=== PATIENT | male | born 1945 | race Caucasian/White ===

== ENCOUNTER → 2018-11-11 15:20 | Outpatient (CLI) | payer MEDICARE, SELFPAY ==
--- NOTE | 2018-11-11 15:30 | ASPSI_PTH ---
PATIENT: SARAH FRASER LOC: [facility] U#:[id number] AGE/SX: 79/M ROOM: RE11/11/[address]: Dr. Vinh Trevizo MD : 1945 BED: DIS: SPEC #: [id number] RECD: 11/11/18 17:33 STATUS: CHERELLE ROXIE #: [id number] JACQUELINE: 11/11/18 15:[address]: Vinh Trevizo DEPT: CYTOLOGY RECD BY: Laurent Davis Tissues: Cheek, NOS Procedures: Surgery Specimen Level IV Cytospin Fluid Cytology Other HEADER OPERATION: FNA PRE-OP DIAGNOSIS: History of skin cancer near site TISSUE SUBMITTED: Right upper cheek area DIAGNOSIS CYTOLOGY Right upper cheek area, biopsy: A few atypical cells noted. See comment. NIYA:lauren 11/14/18 COMMENT The cell block is paucicellular and consists of minute fragments of benign fibrous tissue. Cytospin slides are paucicellular and shows a few atypical cells of undetermined significance. Correlation with clinical findings and appropriate follow up are necessary. Rebiopsy/excision of the lesion is suggested if clinically indicated. Case has been reviewed in consultation with Dr. Valdez who concurs with the above diagnosis. IDC:AM CYTOLOGY STUDY Slides are reviewed. CYTOLOGY GROSS Received is 35 ml of clear fluid labeled with the patient's name and and designated per the requisition as right upper check area. Submitted for cytology preparation including cell block. / lauren 11/12/18 TC:5 CPT: 95741, 17128
== END ==
PROVIDERS: Referring Provider Otolaryngology; Visit Provider Otolaryngology
DX: Z85.828 Personal history of other malignant neoplasm of skin (principal)
CPT/HCPCS: 88108; 88161; 88305

== ENCOUNTER 2018-11-29 16:49 | Observation (INO) | payer MEDICARE, SELFPAY ==
[2018-11-29] VITALS (10 sets, daily range): BP systolic 119–165; BP diastolic 78–97; PULSE 73–93; RESP 16–94; TEMP -13.2–37.4; O2SAT 18–99; BMI 32.8
--- NOTE | 2018-11-29 | IMM_PTH ---
PATIENT: SARAH FRASER LOC: [facility] U#:[id number] AGE/SX: 72/M ROOM: MS312 RE11/29/[address]: Dr. Vinh Trevizo MD : 1945 BED: 1 DIS: 11/30/2018 SPEC #: [id number] RECD: 12/03/18 12:26 STATUS: SOUYamil REQ #: [id number] JACQUELINE: 11/29/18 00:[address]: Vinh Trevizo DEPT: IMMUNOHISTOCHEMISTRY RECD BY: Talia Luque ENTERED: 12/03/18 12:28 SP TYPE: IMMUNO OTHR DR: Dr. Khadar Jimenez MD Tissues: A - Parotid gland, NOS Procedures: SMA (add) CK5-6 (add) DESMIN (add) P16 (add) Vimentin (add) P40 (add) Vimentin (initial) PHYSICIAN & INSTITUTION [place] [id number] SPECIMEN INFORMATION: Tissue Source: A - Lateral and right parotid gland, portion of sock ironer muscle and facial skin overlying the mass Clinical Info: Parotid gland mass, facial paresis Specimen Number: [id number] A3, A6, A8 CPT code: 99203, 97318 x15 METHODOLOGY: Deparaffinized sections of prefer/formalin-fixed tissue or PAP/DQ stained slides are incubated with monoclonal/polyclonal antibodies/oligonucleotide probes. Localization is made via biotin free immunoperoxidase method. Appropriate controls are performed and reacted as expected. Results on target cell population are indicated in the following table: RESULTS: ANTIBODY / CLONE RESULT Block A3 Vimentin (V9) negative Actin (1A4) negative Desmin (CE-R-11) negative CK5-6 (D5 & 1684) positive P40 (BC28) positive P16 (E6H4) negative Block A6 Vimentin (V9) negative Actin (1A4) negative Desmin (CE-R-11) negative CK5-6 (D5 & 1684) positive P40 (BC28) positive Block A8 Vimentin (V9) negative Actin (1A4) negative Desmin (CE-R-11) negative CK5-6 (D5 & 1684) positive P40 (BC28) positive These tests were developed and their performance characteristics determined by [facility]. They may not have been cleared or approved by the [place]. Food and Drug Administration. The FDA has determined that such clearance or approval is not necessary. The above immunohistochemical/dualISH markers are ordered and reviewed by the pathologist. INTERPRETATION: A. Lateral and right parotid gland, portion of sock ironer muscle and facial skin overlying the mass: Poorly differentiated invasive squamous cell carcinoma. Extensive fibrosis (desmoplastic reaction) surrounding the tumor is noted. SJ:lauren 12/04/18 Case has been reviewed in consultation with Dr. Valdez who concurs with the above diagnosis. IDC:JOSE
--- NOTE | 2018-11-29 | PAR_PTH ---
PATIENT: SARAH FRASER LOC: MS3 U#:[id number] AGE/SX: 72/M ROOM: MS312 RE11/29/[address]: Dr. Vinh Trevizo MD : 1945 BED: 1 DIS: 11/30/2018 SPEC #: [id number] RECD: 11/29/18 15:20 STATUS: CHERELLE RENeli #: [id number] JACQUELINE: 11/29/18 00:[address]: Vinh Trevizo DEPT: SURGICAL PATHOLOGY RECD BY: Talia Luque ENTERED: 12/02/18 07:44 SP TYPE: PAROTID OTHR DR: Dr. Khadar Jimenez MD Tissues: A - Parotid gland, NOS B - Parotid duct C - Parotid gland, NOS Procedures: Frozen Section (charge) Frozen Section Add'l (chan[facility] home) Surgery Specimen Level IV Surgery Specimen Level V HEADER OPERATION: Right parotidectomy excision tumor, frozen sections PRE-OP DIAGNOSIS: Mass of parotid gland, facial paresis TISSUE SUBMITTED: A - Lateral and right parotid gland, portions of applied biology professor muscle and facial skin overlying the mass, sent for FS at 1514, double suture - medial, single suture - superior, B - Dillon's duct, sent for FS at 1514, C - Additional parotid tissue sent for FS at 1557, stitch - superior, stained - previous cut, unstained - new cut FROZEN SECTION DIAGNOSIS A. Right parotid gland: Fibrosis and scattered atypical cells consistent with carcinoma close to medial margin. Deep margin negative for carcinoma. B. Dillon's duct: Negative for carcinoma. C. Additional parotid tissue: Negative for carcinoma. NIYA:lauren 11/29/18 Case has been reviewed in consultation with Dr. Valdez who concurs with the above diagnosis. IDC:AM MICROSCOPIC DIAGNOSIS A. Lateral and right parotid gland, portion of applied biology professor muscle and facial skin overlying the mass: Poorly differentiated invasive squamous cell carcinoma. Focal squamous cell carcinoma in situ. One lymph node, negative for metastatic carcinoma. Actinic keratosis with moderate to severe atypia. Solar elastosis. Major salivary gland tissue (parotid gland), no pathologic diagnosis. See comment. B. Dillon's duct: Negative for carcinoma. C. Additional parotid tissue: Skin with underlying tissue, negative for carcinoma. SJ:lauren 12/03/18 COMMENT A. The tumor is entirely present in the subcutaneous adipose tissue underlying the skin piece and focally also invades into the underlying skeletal muscle tissue. Extensive fibrosis (desmoplastic reaction) is noted surrounding the tumor. Underlying muscle shows marked reactive changes. A focal area of squamous cell carcinoma in situ is also noted separate from the underlying invasive squamous cell carcinoma. The resection margins are free of tumor (both invasive carcinoma and carcinoma in situ). The invasive squamous cell carcinoma is present close to the medial margin of the specimen. Immunohistochemistry ([id number]) supports the above diagnosis. The tumor does not involve the adjacent parotid gland tissue. One lymph node is noted between the tumor and parotid gland tissue and negative for metastatic carcinoma. Please make reference to previous specimen ([id number]) right upper check area, biopsy with diagnosis of a few atypical cells noted. Case has been reviewed in consultation with Dr. Valdez who concurs with the above diagnosis. IDC:AM MICROSCOPIC DESCRIPTION Slides are reviewed. GROSS DESCRIPTION A - Received fresh for frozen section diagnosis labeled with the patient's name is a specimen designated mass of right parotid gland. The specimen consists of a skin and underlying soft tissue and adjacent glandular tissue consistent with parotid gland. The entire specimen measures 12 x 7 x 2 cm. Skin is present at the superior end and measures 4 x 3.5 cm. The specimen is oriented as follows: double - medial, single - superior. The specimen is inked as follows: anterior - red, posterior - orange, superior - yellow, inferior - green, medial - black and lateral - blue. Serial sections reveal an indurated area in the soft tissue underlying the skin measuring 1.5 x 1.5 cm. This area is close to the deep and medial margins of the specimen. Three frozen sections are done including closest margins. The parotid gland tissue measures 7 x 6 x 3 cm. Sections of the parotid gland do not reveal any mass lesion and reveal mostly adipose cut surface. Can Solderer sections are submitted in 15 cassettes as follows: 13 - frozen section, indurated area with closest margins, 4 - superior margin, 5-11 - rest of the skin piece and underlying tissue, 12-15 - parotid gland tissue. / SJ: 12/02/18 B - Received fresh for frozen section diagnosis labeled with the patient's name is a specimen designated Dillon's duct. The specimen consists of a tubular piece of chavez soft tissue measuring 1.5 cm in length and 0.7 cm in diameter. The specimen is bisected and submitted for frozen section diagnosis in one cassette. / AM: 12/02/18 C - Received fresh for frozen section diagnosis labeled with the patient's name is a specimen designated additional parotid tissue. The specimen consists of a piece of skin measuring 6.5 x 1 x 0.2 cm. The specimen is oriented as follows: stained - previous cut, unstained - new cut, stitch - superior. The specimen is inked as follows: superior margin - red and inferior margin - yellow. The entire specimen is submitted for frozen section diagnosis in one cassette. / AM: 12/02/18 TC:0 CPT: 55567, 18431 x2, 90697 x3, 75433 x2
[2018-11-29 10:39] LABS: Hematocrit 47.3 % (40-54); Mean Corp Hgb Conc 33.8 g/dL (32-36); Mean Corpuscular Hgb 31.8 pg (27.0-32.0); Mean Platelet Vol. 8.3 fl (6.2-12.0); Platelet Count 165 K/mm3 (150-450); RBC Distribution Width CV 13.2 % (11.6-14.6); RBC Distribution Width SD 45.6 fl (35.1-43.9); Red Blood Count 5.03 M/mm3 (4.6-6.2); White Blood Count 4.7 K/mm3 (4.4-11.0)
[2018-11-29] MEDS: Lactated Ringers 1,000 ML 100 ML IV ×2 (10:40→19:04)
[2018-11-29 10:52] LABS: Anion Gap 6 (5-15); BUN 10 mg/dL (7-18); BUN/Creat Ratio 13.3 RATIO (10-20); Calcium,Total 9.2 mg/dL (8.5-10.1); Chloride 104 mmol/L (98-107); Creatinine, Serum 0.75 mg/dL (0.70-1.30); EST Glomerular Filtration Rate 109 mL/min (>60); Est Glom Filt Rate - Afr Amer 132 mL/min (>60); Estimated Creatinine Clearance 72.16 ml/min; Glucose 108 mg/dL (74-106); Sodium Level 138 mmol/L (136-145)
[2018-11-29] MEDS: Bacitracin 500 UNITS/GM PACKET (15:23)
--- NOTE | 2018-11-29 16:36 | PCM.OPRPT ---
Problem List (1) Secondary malignant neoplasm of parotid gland Status: Acute Report of Operation Date of Procedure: 11/29/18 Pre-Operative Diagnosis: Malignant lesion of right parotid with history of squamous cell carcioma of right face Post-Operative Diagnosis: Same Surgery/Procedure Performed:: Right parotidectomy with preservation of the facial nerve, advancement transposition flap reconstruction Description of Surgical Findings:: Ranjit is a 72-year-old male who presents with a slowly enlarging mass of the right cheek underlying a scar from a previous excision of a squamous cell carcinoma. CT scan showed a mass within the scar abutting the pressure dispatcher muscle and given this history and a fine-needle aspiration biopsy showing atypical cells the above procedures offered for definitive treatment with a high suspicion of malignancy. The risks of facial weakness, facial numbness, pain with mastication, and need for additional treatment with radiation or other surgical therapy for correction of impaired eye closure or other deficit resulting from the resection of his malignancy were discussed. The risks, alternatives, potential complications, and benefits were discussed at length and any questions answered to the patient and/or caregiver's satisfaction. Witnessed informed consent was obtained in the office, and the patient and/or caregiver was agreeable to proceed. Procedure went as follows: The patient was identified in the preoperative holding and the right parotid lesion site marked in accordance with the patient's physical skin exam, office notes, and consent. The patient was then brought to the operating room, placed under general anesthesia and intubated. When appropriate anesthesia was obtained, the facial nerve monitoring electrodes were then placed in accordance with the manufacture's directions over the right side of the face and confirmed to be operational. The planned incision was then marked with a marking pen and injected with 1% lidocaine with 100,000 epinephrine for a total of 11 mL. After allowing for vasoconstriction, a standard parotidectomy incision was then made using a 15 blade scalpel through the skin and subcutaneous tissues. The subcutaneous tissue was then dissected and the greater auricular nerve identified with the branches along the posterior aspect of the incisional flap preserved. Dissection was then carried down along the sternocleidomastoid freeing the parotid attachments to this muscle. Dissection was then carried out along the tragal cartilage and the main trunk of the facial nerve identified. The gland was then resected following out along the facial nerve branches working inferiorly to superiorly. Within the midportion of the gland in the periphery extending over the zygoma and pressure dispatcher muscle was a firm mass encased within the scar from his previous resection. The portion of the facial nerve entering this mass was sacrificed with preservation of the branch extending to the very orbital musculature. Nerve stimulation confirmed preservation of the oral and ocular nerve branches. An ellipse of skin overlying the mass and encompassing the previous excision scar was then planned and resected in continuity with the deeper tissues and parotid glands deep to the zygoma and removing portions of the pressure dispatcher mussel where the tumor was adherent. This was then sent for frozen section evaluation revealed malignancy within the scar tissue from his previous resection. This encroached upon the medial margin of the resection margin additional 3 mm skin margin along this length was sent for pathologic evaluation which is found then to be free of tumor. Resection of the tumor and previous scar revealed a skin defect 4 x 7 cm in size. An advancement transposition flap was then designed to allow for reduced tension wound closure. The wound bed was then copiously irrigated with saline solution and a #7 flat BRIANNA drain placed and brought out through separate stab incision in the skin. The soft tissues were then reapproximated with interrupted 3-0 Vicryl sutures followed by 4-0 Prolene sutures to the skin over the face. A running baseball stitch of 5-0 Monocryl was then used to close the neck and preauricular incisions. The patient was then returned to anesthesia, was revived, and extubated without complication having tolerated the procedure well. Type of Anesthesia:: General Anesthesiologist: Rajan Daly Special Medications: none Specimen's removed: right parotid mass Drains: #7 flat BRIANNA Estimated Blood Loss (mL): 100 mL Fluids Replaced: 1800 mL Grafts/Implants Used: none - Complications none - Admit VTE Documentation VTE Present on Admission: No VTE Mechan Device Prophylaxis: SCD's VTE Pharm Prophylaxis ordered?: No
--- NOTE | 2018-11-29 16:48 | DCINST_ITS ---
- Discharge Diagnoses Current Active Problems: Current Active and Chronic Problems Secondary malignant neoplasm of parotid gland (Acute) You will use the following diet at home:: No restrictions Discharge Activity: Return to Normal Activity, May not drive while taking narcotic pain medications. Call your doctor if your incision/area has: Increased Pain/ Swelling, Increased Redness, Foul Smelling Discharge, Swelling at the incision site Call your doctor if you observe: Fever of 101 or Higher, Inability to urinate, Uncontrolled pain Cleanse incision/area with: Do not get Incision Wet - for 48 hours Allergies/Adverse Reactions: Allergies NSAIDS (Non-Steroidal Anti-Inflamma Allergy (Verified 11/29/18 10:20) Unknown Medications to take at Discharge Acetaminophen [Tylenol Extra Strength] 500 - 1,000 mg PO Q6H PRN PRN 11/27/18 Acetaminophen/Diphenhydramine [Tylenol Pm Ex-Strength Caplet] 1 ea PO QHS PRN 11/27/18 Aspirin [Aspir 81] 81 mg PO DAILY 11/27/18 Cholecalciferol (Vitamin D3) [Vitamin D3] 2,000 unit PO DAILY 11/27/18 Lisinopril [Zestril] 20 mg PO DAILY 11/27/18 Multivitamin with Minerals [Multiple Vitamin] 1 ea PO DAILY 11/27/18 Pantoprazole Sodium [Protonix] 40 mg PO DAILY 11/27/18 Simvastatin [Zocor] 20 mg PO QHS 11/27/18 Vitamin B Complex/Minerals [Sm Stress Formula+Zinc Tablet] 1 ea PO QHS 11/27/18 Primary Care Physician: Khadar Jimenez MD [Primary Care Provider] - Test Results: Test results from this visit will be discussed in further detail at your follow- up appointment, if applicable. Please Follow Up With: Vinh Trevizo MD When: 10 days
--- NOTE | 2018-11-29 19:06 | NURSING ---
1899 Dr. Trevizo paged by Gabbi and she reported he had right neck swelling, and it appeared like it wasn't draining and we were stripping it. Dr Trevizo said he would be right over.
--- NOTE | 2018-11-29 19:22 | NURSING ---
1920 Dr Trevizo in room and stripping the tubing. He also applied a pressure drsg. Pt is scotty. the stripping well. Tongue is midline.
--- NOTE | 2018-11-29 19:51 | PCM.PN.SRG ---
Patient Problems: Active and Suspected Problems Secondary malignant neoplasm of parotid gland (Acute) Subjective: Nursing called reporting that the wound site suddenly kevin swollen, but they were unable to express any blood into the drain. Objective: Patient is noted to be alert at the bedside without wheezing or stridor. Is noted to be some soft tissue fullness suggesting hematoma formation of the inferior aspect of the right neck flap. A pressure dressing was applied and bimanually stripping the drain 160 cc of bloody material was drained resulting in significant reduction of the area of swelling. Observation over 15 minutes failed to show any reaccumulation of material and is felt that this likely represented a small skin edge bleeding that had accumulated to the flap and was controlled with a pressure dressing. - Physical Exam General: Alert, Oriented x3 HEENT: - - Right facial wound is intact, there is noted to be retention of right eye closure and oral movements after resection of parotid mass and mid branches of the facial nerve. Oral: Moist Mucosa Vital Signs Temp Pulse Resp BP Pulse Ox 8.3 F L 79 20 H 160/89 H 94 11/29/18 19:12 11/29/18 19:12 11/29/18 19:12 11/29/18 19:12 11/29/18 19:12 Oxygen Delivery Method Room Air Weight: 108.4 kg Body Mass Index (BMI) 32.8 Intake and Output for Last 24 Hours 11/27/18 11/28/18 11/29/18 23:59 23:59 23:59 Intake Total 840 / 840 Output Total 1150 / 1150 Balance -310 / -310 Laboratory Tests Past 24 Hrs 11/29/18 11/29/18 10:19 10:19 WBC 4.7 RBC 5.03 Hgb 16.0 Hct 47.3 MCV 94.0 MCH 31.8 MCHC 33.8 RDW Std Deviation 45.6 H RDW Coeff of Curt 13.2 Plt Count 165 MPV 8.3 Sodium 138 Potassium 4.0 Chloride 104 Carbon Dioxide 28.0 Anion Gap 6 BUN 10 Creatinine 0.75 Estim Creat Clear Calc 72.16 Est GFR (MDRD) Af Amer 132 Est GFR (MDRD) Non-Af 109 BUN/Creatinine Ratio 13.3 Glucose 108 H Calcium 9.2 Medical Necessity - Tobacco Use Smoking Status: Never smoker Tobacco Use: Non-smoker Assessment/Plan All Active Problems Secondary malignant neoplasm of parotid gland (Acute) The patient is seen at the bedside with a small acute hematoma formation under the skin flap. This can controlled with placement of a pressure dressing and milking of the drain which produced 160 cc of sanguinous material. A short period of observation if it failed to show any significant reaccumulation of bleeding and ongoing observation is advised at this time.
[2018-11-30 04:29] VITALS: BP 128/62; PULSE 62; RESP 16; TEMP 36.5; O2SAT 99
[2018-11-30 08:32] VITALS: BP 145/81; PULSE 66; RESP 18; TEMP 36.4; O2SAT 100
[2018-11-30] MEDS: Lisinopril 20 MG Tablet PO (08:36)
[2018-11-30] MEDS: Pantoprazole Sodium 40 MG Tablet PO (08:36)
--- NOTE | 2018-11-30 10:35 | PCM.PN.SRG ---
Patient Problems: Active and Suspected Problems Secondary malignant neoplasm of parotid gland (Acute) Subjective: Patient is sitting up in bed with pressure dressing in place. He reports that he has had no significant pain overnight and reports that the pressure in the neck is feeling reduced. Objective: There is moderate perioral and periorbital edema which is soft. After removal of the pressure dressing there is noted to be significant reduction of the area of swelling over the right neck without significant fluid collection. Drain output has been less than 10 cc over the last shift. There is minimal ecchymosis consistent with overnight bleeding underneath the flap that has now resolved. - Physical Exam General: Alert, Oriented x3, Cooperative, No apparent distress HEENT: - - Surgical incision sites are clean dry and intact. There is minimal ecchymosis and mild edema consistent with a pressure dressing but no firm mass suggestive of hematoma. Oral: Moist Mucosa, No Gingival or Mucosal Lesions/ Ulcerations Neck: Supple, Trachea Midline Lungs: Normal air movement, No rhonchi, No wheeze Cardiovascular: Regular rate, Regular Rhythm Extremities: No clubbing, No cyanosis, No edema Skin: No rashes Psych/Mental Status: Normal Affect, Alert and oriented to time, place, person, mood and affect Vital Signs Temp Pulse Resp BP Pulse Ox 97.5 F L 66 18 145/81 H 100 11/30/18 08:32 11/30/18 08:32 11/30/18 08:32 11/30/18 08:32 11/30/18 08:32 Oxygen Flow Rate (L/min) 1 Oxygen Delivery Method Room Air Weight: 108.4 kg Body Mass Index (BMI) 32.8 Intake and Output for Last 24 Hours 11/28/18 11/29/18 11/30/18 23:59 23:59 23:59 Intake Total 840 / 840 1000 / 1000 Output Total 1390 / 1390 80 / 80 Balance -550 / -550 920 / 920 Laboratory Tests Past 24 Hrs 11/29/18 11/29/18 10: 10:19 WBC 4.7 RBC 5.03 Hgb 16.0 Hct 47.3 MCV 94.0 MCH 31.8 MCHC 33.8 RDW Std Deviation 45.6 H RDW Coeff of Curt 13.2 Plt Count 165 MPV 8.3 Sodium 138 Potassium 4.0 Chloride 104 Carbon Dioxide 28.0 Anion Gap 6 BUN 10 Creatinine 0.75 Estim Creat Clear Calc 72.16 Est GFR (MDRD) Af Amer 132 Est GFR (MDRD) Non-Af 109 BUN/Creatinine Ratio 13.3 Glucose 108 H Calcium 9.2 Medical Necessity - Tobacco Use Smoking Status: Never smoker Tobacco Use: Non-smoker Assessment/Plan All Active Problems Secondary malignant neoplasm of parotid gland (Acute) Patient is doing well after right parotidectomy and excision of malignant facial lesion. He did have some bleeding underneath the skin flap overnight. This is been controlled with the placement of a pressure dressing and the drainage has significantly subsided. The pressure dressing is replaced and the drain removed to prevent risk of infection. I have asked that he return Sunday for replacement of the pressure dressing and have discussed with him signs of ongoing swelling or infection for which she should return for emergent evaluation to include but not limited to progressive pain swelling redness discharge or fever greater than 102.5. He and his spouse are agreeable to do so and he is eager to go home. At this time I feel he is appropriate for discharge with close outpatient follow-up.
== END 2018-11-30 11:03 | disposition home or self-care (01) ==
LOC: SDC 17:03
PROVIDERS: Anesthesiology; Admitting Provider Otolaryngology; Family Provider Family Medicine; PCP Family Medicine; Referring Provider Otolaryngology; Visit Provider Otolaryngology
PROC: (CPT 42410; principal; 2018-11-29 11:15)
DX: C79.89 Secondary malignant neoplasm of other specified sites (principal); Z85.828 Personal history of other malignant neoplasm of skin; K21.9 Gastro-esophageal reflux disease without esophagitis; E78.00 Pure hypercholesterolemia, unspecified; Z79.899 Other long term (current) drug therapy; Z79.82 Long term (current) use of aspirin; I10 Essential (primary) hypertension; M19.90 Unspecified osteoarthritis, unspecified site
CPT/HCPCS: 00100; 14041; 42420; 80048; 85027; 88305; 88307; 88331; 88332; 88341; 88342; 96360; 96361; 99218; J7120; G0378; G0379; J2405